=== PATIENT | female | born 1985 | race Two or more races ===

== ENCOUNTER 2021-04-29 08:42 | Day surgery (SDC) | payer OTHER | END 2021-04-29 17:00 | disposition home or self-care (01) | LOC: CIR.AMB 08:42 | PROVIDERS: ATTEND Colon & Rectal Surgery | DX: K64.8 Other hemorrhoids (principal); K64.4 Residual hemorrhoidal skin tags; Z20.822 Contact with and (suspected) exposure to COVID-19 ==